=== PATIENT | male | born 1940 | race Caucasian/White ===

== ENCOUNTER → 2017-04-17 | Outpatient (REF) | payer MEDICARE, OTHER ==
[~2017-04-17] MED LIST: AZIT-9 PO; CYAN500T54 PO; IRON1TAB4 PO; LEVO25TA56 PO; LISI-368 PO; MVI; NAP500; NAPR-1043 PO; OMEP40CA79 PO; SIMV-42 PO; TRA50
[2017-04-17 16:31] LABS: PLATELET COUNT, AUTOMATED 246 K/uL (150-450)
== END ==
PROVIDERS: ATTEND Nurse Practitioner Family
DX: R07.9 Chest pain, unspecified (principal)
CPT/HCPCS: 82040; 82247; 82310; 82374; 82435; 82565; 82947; 84075; 84132; 84155; 84295; 84450; 84460; 84484; 84520; 85025